=== PATIENT | male | born 1965 | race Caucasian/White ===

== ENCOUNTER 2024-01-20 08:38 | Day surgery (SDC) | payer OTHER ==
[2024-01-20] MEDS: IV FLUID CONTINUATION 1,000 ML IV ONE (09:25)
[2024-01-20] MEDS: SODIUM CHLORIDE 0.9% 500 ML 500 ML IV SCH (09:45)
[2024-01-20] MEDS ORDERED: PROPOFOL 10 MG/ML 20 ML VIAL IV ONE (10:09)
[2024-01-20] MEDS ORDERED: LIDOCAINE 1% INJ 10MG/ML (20 ML MDV) ONE (10:09)
[2024-01-20 11:08] VITALS: RESP 16; TEMP 98
[2024-01-20 12:02] VITALS: BP 127/85; PULSE 56
--- NOTE | 2024-01-20 13:39 | P.TEE ---
Date of Procedure: 01/20/24 Transesophageal Echocardiogram (CARRINGTON) Progress Note: Procedure performed: 1. Transesophageal Echocardiogram. 2. Synchronized Cardioversion. 3. Bubble study Indications: Persistent atrial fibrillation Consent: I have discussed the risks, benefits and alternative therapies for the above-mentioned procedure. The patient has indicated understanding and acceptance of the risks of the procedure. Signed consent was obtained and was placed in the paper chart. Moderate conscious sedation: Moderate conscious sedation was administered by anesthesia, see separate report. Procedural Steps: Timeout was performed in usual fashion. Patient's heart rate, blood pressure, oxygen saturation and ECG were monitored. After achieving appropriate moderate conscious sedation, CARRINGTON CARRINGTON probe was advanced without difficulty and without any immediate complications to the esophagus. CARRINGTON study was performed with color flow doppler, pulsed wave doppler and continuous wave doppler. Agitated saline bubbles were injected to assess for any intra-atrial shunt. The probe was then removed. SYNCHRONIZED CARDIOVERSION After making sure that there is no evidence of intracardiac thrombus, pacer pads were placed and secured on patients chest and back. Synchronized cardioversion was perfromed using [150] J. [1] attempt. Sinus rhythm was confirmed with a 12 lead EKG. Patient tolerated the procedure well. Patient was transferred to the post procedure area in stable and satisfactory condition. Complications: none Blood loss: none FINDINGS Left Atrium: Severe LA dilatation. No evidence of mass or thrombus seen Left Atrial Appendage: No evidence of thrombus or mass seen in RAMOS. Spontaneous echogenic contrast noticed in left atrial appendage. Slow velocities in left atrial appendage. Inter atrial septum: Intact inter-atrial septum. No evidence of atrial septal defect or patent foramen ovale on color doppler. No evidence of [id number] intracardiac shunting on the bubble study. Left Ventricle: Mildly reduced LV global systolic function with EF estimated at 45%. Right Atrium: Normal overall RA size Right Ventricle: Normal global RV size and systolic function Aortic Valve: Structurally normal Trileaflet. No significant stenosis or regurgitation on color doppler assessment. Mitral Valve: Struturally normal. No evidence of prolapse. Mild functional mitral regurgitation Pulmonic Valve: Not well visualized. Tricuspid Valve: Structurally normal. Ascending aorta, Aortic root and Aortic arch: Aortic root 3.8 cm, nondilated ascending aorta. Mild intimal thickening. Descending aorta: Mild intimal thickening CONCLUSION: No evidence of thrombus in left atrial appendage or left atrium. Severe left atrial dilatation. Mild functional mitral regurgitation due to annular dilatation Mildly reduced global LV systolic function and EF of 45%. Successful cardioversion 1 attempt, 150 J with resolution of normal sinus rhythm. Plan Continue metoprolol. Continue flecainide 50 mg, Cardizem 120 mg daily, Eliquis 5 mg twice daily. Follow-up outpatient in next 1 week Performing physician Blade Valverde MD, RPVI, FACC Please CC the results of this test to Dr. Lakhwinder Mancia
== END 2024-01-20 12:36 | disposition home or self-care (01) ==
LOC: OR 08:38
PROVIDERS: ATTEND Student in an Organized Health Care Education/Training Program
DX: I34.0 Nonrheumatic mitral (valve) insufficiency (principal); I48.0 Paroxysmal atrial fibrillation; I10 Essential (primary) hypertension; F17.210 Nicotine dependence, cigarettes, uncomplicated; R47.1 Dysarthria and anarthria; Z79.899 Other long term (current) drug therapy; Z79.01 Long term (current) use of anticoagulants
CPT/HCPCS: 93312; 93320; 93325; 92960; J2003; J2704

== ENCOUNTER → 2024-03-24 | Day surgery (SDC) | payer OTHER ==
[2024-03-20 10:17] VITALS: BMI 20.9
[~2024-03-24] MED LIST: LIDOCAINE 1% (10MG/ML) FOR IV START INTRADERMA PRN; PROPOFOL 10 MG/ML 20 ML VIAL IV ONE
[2024-03-24 10:43] VITALS: TEMP 97.7
[2024-03-24] MEDS: LACTATED RINGERS 1,000 ML IV SCH (10:50)
[2024-03-24] MEDS: IV FLUID CONTINUATION 1,000 ML IV ONE (10:50)
--- NOTE | 2024-03-24 11:57 | P.PCN ---
Date of Procedure: 03/24/24 Procedure(s) Performed: BRIEF HISTORY: Patient is a 58-year-old pleasant white male scheduled for an elective colonoscopy as a part of evaluation of chronic diarrhea for 6 months duration. Had episode of small bowel obstruction for which he was hospitalized at [facility] in September 2019 for and underwent expiratory laparotomy for necrotic small bowel with Dr. Samuels. He was hospitalized for 6 weeks. Since surgery has been having diarrhea with 8-10 loose watery bowel movements a day with no blood or mucus in the stool and lost about 30 pounds. PROCEDURE PERFORMED: Colonoscopy with random biopsies. PREOPERATIVE DIAGNOSIS: Chronic diarrhea of 6 hours duration. IV sedation per Anesthesia. PROCEDURE: After informed consent was obtained, the patient, was brought into the endoscopy unit. IV sedation was administered by Anesthesia under continuous monitoring. Digital rectal examination was normal. Initially the Olympus CF-160 flexible video colonoscope was then inserted in the rectum, gradually advanced into the mid transverse colon where there was a benign appearing stricture identified. Mucosa at the site of the stricture appeared normal. Part of the colon beyond the stricture could be visualized that appeared normal. I removed the scope and a pediatric colonoscopy then inserted into the rectum and gradually advanced up to the stricture and despite multiple attempts I was not able to advance advance scope beyond the stricture. Prep was excellent. The scope was gradually being withdrawn. Mucosa of the transverse colon, descending colon, sigmoid colon, and rectum appeared normal. Biopsies were done from the mild and descending colon rule out microscopic/collagenous colitis. Retroflexion was performed in the rectum and no lesions were seen. The patient tolerated the procedure well. IMPRESSION: Normal-appearing colon from rectum to mid transverse colon with th ere was a benign-appearing stricture identified and the scope could not be traversed through the stricture. RECOMMENDATIONS: Findings of this examination were discussed with the patient as well as his family. He was advised to follow-up with the biopsy results. He will be seen in the office in 2 to 3 weeks..
[2024-03-24 12:08] VITALS: RESP 16
[2024-03-24 12:26] VITALS: BP 160/85; PULSE 65
[2024-03-25 05:58] LABS: Cryptosporidium Antigen Negative (Negative)
== END ==
LOC: ORWHC2ENDO 09:40
PROVIDERS: ATTEND Internal Medicine Gastroenterology
DX: K52.9 Noninfective gastroenteritis and colitis, unspecified (principal); K21.9 Gastro-esophageal reflux disease without esophagitis; I10 Essential (primary) hypertension; I20.9 Angina pectoris, unspecified; I48.91 Unspecified atrial fibrillation; Z79.899 Other long term (current) drug therapy
CPT/HCPCS: 88305; 87324; 87045; 87329; 87328; 83630; 87046; 45380; J2704